=== PATIENT | female | born 1930 | race Caucasian/White ===

== ENCOUNTER 2017-05-05 12:09 | Inpatient (IN) | payer OTHER ==
[~2017-05-05] VITALS: Ht 154.9 cm; Wt 52.4 kg
[2017-05-05] VITALS (19 sets, daily range): BP systolic 43–89; BP diastolic 29–65
[~2017-05-05 12:09] MED LIST: ACID CONTROL150 MG PO; ACID GONE ANTA355 ML PO; ALPRAZOLAM0.25 M2 PO; ALUM-MAG HYDRO360 ML PO; AMLODIPINE BESYL5 MG PO; AMLODIPINE-BEN1 EAC3 PO; ASPIR 8181 M1 PO; BACTRIM,SEPT1 TABLET PO; BETHANECHOL CHL25 MG PO; CARAFATE1 GM PO; CEFTIN250 MG PO; CENTRUM SILVER1 EAC4 PO; CHLORDIAZEPOXI1 EAC1 PO; CIPRO500 M1 PO; CLARITIN,ALAVAR10 MG PO; CLONIDINE HCL0.1 MG PO; COLACE100 MG PO; COUMADIN5 MG PO; CREON 61 CAPSULE PO; Carafate PO; Chronulac,Cephulac,E PO; DEXILANT60 MG PO; DIOVAN160 MG PO; DOCUSATE SODIU100 MG PO; EXFORGE 10/11 TABLET PO; EXFORGE 5/161 TABLET PO; FLAGYL500 MG PO; FLUCONAZOLE100 MG PO; GAS RELIEF125 MG PO; GAS-X ULTRA ST180 MG PO; GAS-X125 M1 PO; GAS-X125 MG PO; GAVISCON ES CH1 EACH; GAVISCON ES CH1 EACH PO; K-DUR20 MEQ PO; LANSOPRAZOLE15 MG PO; LEVAQUIN750 MG PO; LIBRAX, CLI1 CAPSULE PO; LISINOPRIL20 MG PO; Levaquin PO; MACROBID100 MG PO; MECLIZINE HCL25 MG PO; METOCLOPRAMIDE H5 MG PO; MIRALAX, GLYCOL1 PK1 PO; MIRTAZAPINE15 MG PO; MYLICON,MYLANTA80 MG PO; Milk Of Magnesia,MOM PO; NORVASC5 MG PO; Norvasc PO; OMEPRAZOLE20 MG PO; PANTOPRAZOLE SO40 MG PO; PERCOCET 5/31 TABLET PO; PREVACID30 MG PO; PRILOSEC OTC20 MG PO; PRILOSEC20 MG PO; PRINIVIL20 MG PO; PROTONIX40 MG PO; Percocet 5/325,Endoc PO; Protonix IV; RANITIDINE HCL150 M1 PO; RANITIDINE HCL150 MG PO; REGLAN10 M1 PO; REGLAN5 MG PO; REMERON15 M2 PO; Reglan PO; Robitussin, Organidi PO; SIMETHICONE180 MG PO; SUCRALFATE1 GM/10 ML PO; SYMBYAX 6-25 M1 EACH PO; TESSALON PERLE100 MG PO; TYLENOL EXTRA500 MG PO; TYLENOL REGULA325 MG PO; Tums PO; Tylenol PR; URECHOLINE25 MG PO; XANAX0.25 MG PO; XIFAXAN550 MG PO; Xanax PO; ZANTAC150 MG PO; ZEGERID OTC 201 EACH PO; ZYRTEC10 M2 PO; [UNRECOGNIZED DRUG - OTHER]; [UNRECOGNIZED DRUG - OTHER] PO; celeXA PO
[2017-05-05 12:32] LABS: BASOPHIL (%) 0.3 % (0-1); BASOPHIL COUNT 0.1 K/uL (0-0.1); EOSINOPHIL (%) 0 % (0-5); HEMATOCRIT 40.5 % (36.0-46.0); HEMOGLOBIN 12.9 G/DL (11.9-15.5); IMMATURE GRANULOCYTE (%) 1.7 % (0.0-0.7); LYMPHOCYTE (%) 5.8 % (15-42); MCH 29.3 PG (29.0-34.0); MCHC 31.9 G/DL (30.0-36.0); MONOCYTE COUNT 0.9 K/uL (0-0.8); NEUTROPHIL (%) 87.2 % (45-76); NEUTROPHIL COUNT 15.2 K/uL (1.8-6.4); RBC DIS.WIDTH-CV 14.4 % (11.8-14.6); RBC DIS.WIDTH-SD 48.5 % (39-53); WHITE BLOOD COUNT 17.4 K/uL (4.1-10.2)
[2017-05-05 12:44] LABS: AMYLASE 102 IU/L (1-118); CHLORIDE 120 mEq/L (99-109); PLATELET COUNT 436 K/uL (156-360); POTASSIUM 3.3 mEq/L (3.7-5.4); SODIUM 157 mEq/L (136-147)
[2017-05-05 12:46] LABS: GLUCOSE 137 mg/dL (70-99)
[2017-05-05 12:49] LABS: SERUM ETHYL ALCOHOL < 10 mg/dL
[2017-05-05 12:50] LABS: GFR ESTIMATE (CALCULATED) 25 mL/min/
[2017-05-05 12:51] LABS: UREA NITROGEN (BUN) 51 mg/dL (9-23)
[2017-05-05 12:53] LABS: LIPASE 122 U/L (1.0-51.0)
[2017-05-05 12:54] LABS: TROP-I INTERPRETATION NEGATIVE; TROPONIN-I 0.12 ng/mL (0.0-0.30)
[2017-05-05 13:20] LABS: HEMATOCRIT 35.7 % (36.0-46.0); HEMOGLOBIN 11.4 G/DL (11.9-15.5); MCH 29.4 PG (29.0-34.0); MCHC 31.9 G/DL (30.0-36.0); PLATELET COUNT 403 K/uL (156-360); RBC DIS.WIDTH-CV 14.4 % (11.8-14.6); RBC DIS.WIDTH-SD 48.4 % (39-53); RED BLOOD COUNT 3.88 M/uL (3.80-5.20); WHITE BLOOD COUNT 18.2 K/uL (4.1-10.2)
[2017-05-05 13:40] LABS: CHLORIDE 119 MEQ/L (99-109); CREATININE 2.1 MG/DL (0.6-1.3); GFR ESTIMATE (CALCULATED) 24 mL/min/; GLUCOSE 130 mg/dL (70-99); POTASSIUM 2.8 MEQ/L (3.7-5.4); SODIUM 156 MEQ/L (136-147); TROP-I INTERPRETATION NEGATIVE; TROPONIN-I 0.12 ng/mL (0.0-0.30); UREA NITROGEN (BUN) 50 mg/dL (9-23)
[2017-05-05 16:03] LABS: APPEARANCE CLOUDY ((CLEAR)); BILIRUBIN NEGATIVE; BLOOD MODERATE; COLOR AMBER ((YELLOW)); GLUCOSE (STRIP) 50; KETONES 5; LEUKOCYTES SMALL; NITRITE NEGATIVE; PROTEIN (STRIP) 100; SPECIFIC GRAVITY 1.021 (1.000-1.030); UROBILINOGEN 0.2 MG/DL (0.2-1.0)
[2017-05-05 16:46] LABS: BACTERIA 1+ /HPF; EPITHELIAL CELLS NONE SEEN /HPF; MUCUS NONE SEEN /LPF; UCUL ADDED? YES
[2017-05-05 19:18] LABS: BASOPHIL (%) 0.2 % (0-1); EOSINOPHIL (%) 0 % (0-5); HEMATOCRIT 33.6 % (36.0-46.0); HEMOGLOBIN 10.3 G/DL (11.9-15.5); IMMATURE GRANULOCYTE (%) 2.9 % (0.0-0.7); LYMPHOCYTE (%) 8.8 % (15-42); LYMPHOCYTE COUNT 1.4 K/uL (1.0-2.8); MCH 29.5 PG (29.0-34.0); MCHC 30.7 G/DL (30.0-36.0); MONOCYTE (%) 2.9 % (3-12); MONOCYTE COUNT 0.5 K/uL (0-0.8); NEUTROPHIL (%) 85.2 % (45-76); NEUTROPHIL COUNT 13.7 K/uL (1.8-6.4); NRBC (%) 0.2 /100 WBC (0-0); PLATELET COUNT 416 K/uL (156-360); RBC DIS.WIDTH-CV 14.7 % (11.8-14.6); RBC DIS.WIDTH-SD 51.8 % (39-53); RED BLOOD COUNT 3.49 M/uL (3.80-5.20); WHITE BLOOD COUNT 16.1 K/uL (4.1-10.2)
[2017-05-05 19:19] LABS: MCV 96.3 FL (83-99)
[2017-05-05 22:11] LABS: ALBUMIN 1.8 G/DL (3.2-4.8); ALKALINE PHOSPHATASE 46 IU/L (3-129); ALT (GPT) 114 IU/L (3-49); AST (GOT) 213 IU/L (2-34); CHLORIDE 127 MEQ/L (99-109); CREATININE 2.2 MG/DL (0.6-1.3); GFR ESTIMATE (CALCULATED) 22 mL/min/; SODIUM 159 MEQ/L (136-147); TOTAL BILIRUBIN 0.7 MG/DL (0.0-1.0); TOTAL PROTEIN 4.3 G/DL (6.4-8.3); UREA NITROGEN (BUN) 50 mg/dL (9-23)
[2017-05-05 22:14] LABS: GLUCOSE 48 mg/dL (70-99); POTASSIUM 3.8 MEQ/L (3.7-5.4)
== END 2017-05-06 01:08 | DRG 853 ==
LOC: EME 12:09 → CATH 13:29 → 2SOUTH 14:21 → ENRESERV 14:22 → 4WEST 14:29
PROVIDERS: Emergency Medicine; Internal Medicine Cardiovascular Disease; Internal Medicine Critical Care Medicine; Specialist
DX: A41.9 Sepsis, unspecified organism (principal); J69.0 Pneumonitis due to inhalation of food and vomit; I21.19 ST elevation (STEMI) myocardial infarction involving other coronary artery of inferior wall; R57.0 Cardiogenic shock; I25.10 Atherosclerotic heart disease of native coronary artery without angina pectoris; I10 Essential (primary) hypertension; I35.0 Nonrheumatic aortic (valve) stenosis; I48.2 Chronic atrial fibrillation; J43.9 Emphysema, unspecified; K31.84 Gastroparesis; K21.0 Gastro-esophageal reflux disease with esophagitis; G89.29 Other chronic pain; M54.9 Dorsalgia, unspecified; Z51.5 Encounter for palliative care; Z91.81 History of falling; Z79.01 Long term (current) use of anticoagulants; Z88.5 Allergy status to narcotic agent
CPT/HCPCS: 71045; 73502; 80048; 80048 91; 80053; 81003; 82150; 82948; 83605; 83690; 84484; 85025; 85025 91; 85027; 85347; 85610; 85730; 86850; 86870; 86900; 86901; 86905; 86920; 87070; 87077; 87086; 87186; 87205; 87641; 93005; 99281; 99285; C1725; C1751; C1760; C1769; C1887; C1894; G0480; J0610; J1200; J1265; J1644; J1940; J2250; J2405; J2543; J2704; J2930; J3010; J3370; J7030; J7050; S0028